=== PATIENT | male | born 1975 | race Caucasian/White ===

== ENCOUNTER 2017-04-24 04:24 | Emergency (ER) | payer OTHER ==
[2017-04-24 04:29] VITALS: BP 143/93; PULSE 96; RESP 18; TEMP 98.8; O2SAT 92
[2017-04-24] MEDS ORDERED: IBUPROFEN 200 MG TAB PO ONE (04:49)
[2017-04-24] MEDS ORDERED: PENICILLIN VK 250MG PREPACK#6 BTL TAKEHOME ONE (04:49)
[2017-04-24] MEDS ORDERED: PENICILLIN VK 500 MG TAB PO ONE (04:49)
--- NOTE | 2017-04-24 04:49 | EDPHY ---
H & P Stated Complaint: left side jaw pain and swelling HPI/ROS: HPI CHIEF COMPLAINT: Left lower jaw line pain dental pain. Jaw line swelling. HISTORY OF PRESENT ILLNESS: The patient very pleasant 42-year-old male, otherwise healthy significant past medical history for asthma, has very poor dentition. Smokes tobacco daily. Extensive dental caries and dental decay. For the past 12 hours developed some left lower jaw line pain and swelling. No fever. No trouble swallowing. Denies fever. This started 12 hours ago. He came to the emergency room for pain control and antibiotics. He states he has a dentist that follows him. On the of this month is due to have dental extractions of these teeth. Past Medical History: No significant medical history except for poor dentition. Extensive dental caries. Dental decay. Asthma Past Surgical History: No recent surgery Social History: Smokes tobacco daily. Denies illicit drugs or alcohol. Family History: Noncontributory ROS REVIEW OF SYSTEMS: A comprehensive 10 point review of systems is otherwise negative aside from elements mentioned in the history of present illness. Exam Constitutional appears well nontoxic, triage nursing summary reviewed, vital signs reviewed, awake/alert. Eyes normal conjunctivae and sclera, EOMI, PERRLA. HENT oropharynx: Very poor dentition. Extensive dental decay. Extensive dental caries. No signs of Nash's. No gumline abscess visible. On the left lower jaw line there are multiple teeth missing and dental decay. Tender palpation along this jaw line. No significant swelling externally. No lymphadenopathy. normal inspection, atraumatic, moist mucus membranes, no epistaxis, neck supple/ no meningismus, no raccoon eyes. Respiratory clear to auscultation bilaterally, normal breath sounds, no respiratory distress, no wheezing. Cardiovascular rate normal, regular rhythm, no murmur, no edema, distal pulses normal. Gastrointestinal soft, non-tender, no rebound, no guarding, normal bowel sounds, no distension, no pulsatile mass. Genitourinary no CVA tenderness. Musculoskeletal no midline vertebral tenderness, full range of motion, no calf swelling, no tenderness of extremities, no meningismus, good pulses, neurovascularly intact. Skin pink, warm, & dry, no rash, skin atraumatic. Neurologic awake, alert and oriented x 3, AAOx3, moves all 4 extremities equally, motor intact, sensory intact, CN II-XII intact, normal cerebellar, normal vision, normal speech. Psychiatric normal mood/affect. Heme/Lymph/Immune no lymphadenopathy. Differential Diagnosis: Includes but is not limited to in a particular order dental decay, dental caries, apical abscess, pulpitis, jaw line infection Medical Decision Making: Plan for this patient 1st dose Pen-VK here. Ibuprofen 800. Prescription for [place], pen VK and ibuprofen. Close follow-up with his dentist. Return precautions given. He has been told return emergency room if develops worsening swelling, pain, fever. Questions or concerns he understands. Re-evaluation: Source: Patient - Personal History Current Tetanus/Diphtheria Vaccine: Yes Current Tetanus Diphtheria and Acellular Pertussis (TDAP): Yes - Medical/Surgical History Hx Asthma: Yes Hx Chronic Respiratory Disease: No Hx Diabetes: No Hx Cardiac Disease: No Hx Renal Disease: No Hx Cirrhosis: No Hx Alcoholism: No Hx HIV/AIDS: No Hx Splenectomy or Spleen Trauma: No Other PMH: asthma, - Social History Smoking Status: Current every day smoker Constitutional: Initial Vital Signs Temperature (C) 37.1 C 04/24/17 04:26 Heart Rate 96 04/24/17 04:26 Respiratory Rate 18 04/24/17 04:26 Blood Pressure 143/93 H 04/24/17 04:26 O2 Sat (%) 92 04/24/17 04:26 O2 Delivery Mode Room Air Allergies/Adverse Reactions: No Known Allergies Allergy (Unverified 04/24/17 04:29) Home Medications: Medication Instructions Recorded Hydrocodone/APAP 5/325 [[place] 1 - 2 tab PO Q4H PRN #20 tab 04/24/17 5/325] Ibuprofen [Motrin (*)] 800 mg PO Q6-8PRN #10 tab 04/24/17 Penicillin V Potassium [Penicillin 500 mg PO BID #14 tab 04/24/17 VK] Ventolin Hfa Inhaler 04/24/17 Departure - Departure Disposition: Home, Routine, Self-Care Clinical Impression: Pain, dental Condition: Good Instructions: Dental Caries (ED), Dental Abscess (ED), Toothache (ED) Additional Instructions: 1. Return emergency room if develops worsening symptoms. 2. Please follow up with her dentist. 3. Return if you develop fever worsening swelling worsening pain. Referrals: NONE *PRIMARY CARE P,. [Primary Care Provider] - As per Instructions Prescriptions: Hydrocodone/APAP 5/325 [[place] 5/325] 1 - 2 tab PO Q4H PRN #20 tab PRN Reason: Pain, Moderate Ibuprofen [Motrin (*)] 800 mg PO Q6-8PRN #10 tab Penicillin V Potassium [Penicillin VK] 500 mg PO BID #14 tab
== END 2017-04-24 05:08 | disposition home or self-care (01) ==
DX: K08.89 Other specified disorders of teeth and supporting structures (principal); J45.909 Unspecified asthma, uncomplicated; F17.200 Nicotine dependence, unspecified, uncomplicated

== ENCOUNTER 2017-04-29 09:30 | Emergency (ER) | payer OTHER ==
--- NOTE | 2017-04-29 10:18 | EDPHY ---
H & P Stated Complaint: Waiting to have dental extractions on 05/03;needs more meds/ diff med Time Seen by Provider: 04/29/17 10:17 HPI/ROS: HPI: This is a 42-year-old male presents with Chief Complaint: Dental infection Location: Left lower jaw Quality: Dental infection Duration: Couple days Signs and Symptoms:+ jaw swelling, + increasing pain, no difficulty swallowing, + radiation to ear causing pain, no fever, no chills, no difficulty speaking, no neck stiffness Timing: Gradually worsening Severity: Severe Context: Patient presents with poor dentition that he had followed up with the outpatient dental clinic 1-2 weeks ago; had x-rays that noted infection and need for multiple tooth extractions of number 15 and number 17. Patient has to wait until May 03 until he gets paid; to pay the 500 dollar fee. He was seen in this ER on 04/24/2017; given penicillin and [place]. He is on day 5 of antibiotic but notes he has run out of the [place] in the last 2 days. He reports that there is worsening of the dental pain as well as the left lower jaw swelling and is now radiating into his year. + tobacco user Modifying Factors: See above Comment: ROS: see HPI Constitutional: No fever, no chills, no weight loss Eyes: No blurred vision Respiratory: No shortness of breath, no cough Cardiovascular: No chest pain Gastrointestinal: No nausea, no vomiting, no diarrhea Genitourinary: No dysuria Extremities: No myalgias Neurologic: No weakness, no numbness Skin: No rashes Hematologic: No bruising, no bleeding MEDICAL/SURGICAL/SOCIAL HISTORY: Medical history: Asthma Surgical history: Denies Social history: with children. Employed. CONSTITUTIONAL: Very pleasant and polite adult white male, awake and alert, no obvious distress HEENT: Atraumatic and normocephalic, PERRL, EOMI. Tympanic membranes clear. Oropharynx clear, no exudate and moist pink mucosa. Airway patent. No lymphadenopathy. Very poor dentition. Extensive dental decay. Extensive dental caries. No signs of Nash's. No gumline abscess visible. On the left lower jaw line there are multiple teeth missing and dental decay. Tender palpation along this jaw line especially over to #15 and #17. No significant swelling externally. No lymphadenopathy. NECK: supple, no meningismus, no lymphadenopathy Cardiovascular: Normal S1/S2, regular rate, regular rhythm, without murmur rub or gallop. PULMONARY/CHEST: Symmetrical and nontender. Clear to auscultation bilaterally. Good air movement. No accessory muscle usage. ABDOMEN: Soft, nondistended, nontender, no rebound, no guarding, no peritoneal signs, no masses or organomegaly. No CVAT. EXTREMITIES: 2/2 pulses, no deformities, no clubbing, no cyanosis or edema. NEUROLOGICAL: no focal neuro deficits. GCS 15. SKIN: Warm and dry, no erythema. no rash. Good capillary refill. Source: Patient Exam Limitations: No limitations - Personal History Current Tetanus Diphtheria and Acellular Pertussis (TDAP): Yes - Medical/Surgical History Hx Asthma: Yes Hx Chronic Respiratory Disease: No Hx Diabetes: No Hx Cardiac Disease: No Hx Renal Disease: No Hx Cirrhosis: No Hx Alcoholism: No Hx HIV/AIDS: No Hx Splenectomy or Spleen Trauma: No Other PMH: asthma - Social History Smoking Status: Current every day smoker Constitutional: Initial Vital Signs Temperature (C) 37 C 04/29/17 09:45 Heart Rate 99 04/29/17 09:45 Respiratory Rate 16 04/29/17 09:45 Blood Pressure 164/107 H 04/29/17 09:45 O2 Sat (%) 94 04/29/17 09:45 O2 Delivery Mode Room Air Allergies/Adverse Reactions: No Known Allergies Allergy (Verified 04/29/17 09:44) Home Medications: Medication Instructions Recorded Hydrocodone/APAP 5/325 [[place] 1 - 2 tab PO Q4H PRN #20 tab 04/24/17 5/325] Ibuprofen [Motrin (*)] 800 mg PO Q6-8PRN #10 tab 04/24/17 Penicillin V Potassium [Penicillin 500 mg PO BID #14 tab 04/24/17 VK] Ventolin Hfa Inhaler 04/24/17 Clindamycin HCl [Clindamycin] 300 mg PO TID #30 cap 04/29/17 oxyCODONE/APAP 5/325 [Percocet 1 - 2 tab PO Q4H PRN #20 tab 04/29/17 5/325 (*)] Medical Decision Making ED Course/Re-evaluation: Afebrile and no systemic signs. 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 Differential Diagnosis: Differential diagnosis includes atypical bacteria infection, Nash's angina, periapical abscess. - Data Points Laboratory Results: 04/29/17 10:28 POC Hgb 15.3 gm/dL gm/dL (13.7-17.5) POC Hct 45 % % (40-51) POC Sodium 143 mEq/L mEq/L (134-144) POC Potassium 4.3 mEq/L mEq/L (3.3-5.0) POC Chloride 107 mEq/L mEq/L (97-110) POC BUN 12 mg/dL mg/dL (7-23) POC Creatinine 1.0 mg/dL mg/dL (0.7-1.3) POC Glucose 95 mg/dL mg/dL (70-100) Medications Given: Discontinued Medications Clindamycin Phosphate/Dextrose (Cleocin 600 Mg (Premix)) 50 mls @ 100 mls/hr IV EDNOW ONE PRN Reason: Protocol Stop: 04/29/17 10:53 Last Admin: 04/29/17 11:00 Dose: 50 mls Ketorolac Tromethamine (Toradol) 30 mg IVP EDNOW ONE Stop: 04/29/17 10:42 Last Admin: 04/29/17 10:45 Dose: 30 mg Morphine Sulfate (Morphine) 6 mg IVP EDNOW ONE Stop: 04/29/17 10:25 Last Admin: 04/29/17 11:23 Dose: Not Given Point of Care Test Results: 04/29/17 10:28 POC Sodium 143 POC Potassium 4.3 POC Chloride 107 POC BUN 12 POC Creatinine 1.0 POC Glucose 95 Departure - Departure Disposition: Home, Routine, Self-Care Clinical Impression: Periapical abscess without sinus tract, Dental caries Condition: Good Instructions: Dental Abscess (ED) Additional Instructions: Please keep dental appointment on May 03 as previously scheduled. Take all antibiotics as directed. Rinse mouth with salt water after eating meals. Referrals: [facility],. [Clinic] - As per Instructions Prescriptions: Clindamycin HCl [Clindamycin] 300 mg PO TID #30 cap oxyCODONE/APAP 5/325 [Percocet 5/325 (*)] 1 - 2 tab PO Q4H PRN #20 tab PRN Reason: Pain, Severe
[2017-04-29] MEDS ORDERED: CLINDAMYCIN 600 MG/DEXTROSE 50 ML IV ONE (10:24)
[2017-04-29] MEDS ORDERED: KETOROLAC 30 MG/1 ML SDV IVP ONE (10:41)
[2017-04-29] MEDS ORDERED: IOPAMIDOL (ISOVUE-300) 100 ML BTL ONE (10:51)
[2017-04-29] MEDS ORDERED: CLINDAMYCIN 600 MG/DEXTROSE/50 ML BAG IV ONE (10:55)
[2017-04-29 12:07] VITALS: BP 135/85; PULSE 81; RESP 18; TEMP 98.4; O2SAT 96
== END 2017-04-29 12:04 | disposition home or self-care (01) ==
DX: K04.7 Periapical abscess without sinus (principal); K02.9 Dental caries, unspecified; J45.909 Unspecified asthma, uncomplicated; F17.200 Nicotine dependence, unspecified, uncomplicated
CPT/HCPCS: 82947-QW; 96365; J1885; Q9967

== ENCOUNTER 2018-08-20 11:18 | Emergency (ER) | payer OTHER ==
--- NOTE | 2018-08-20 12:11 | EDPHY ---
H & P Time Seen by Provider: 08/20/18 12:18 HPI/ROS: CHIEF COMPLAINT: Left knee pain HISTORY OF PRESENT ILLNESS: 43 year old male complaining of acute left knee pain which occurred 3 days ago when he was at work, slipped on the floor , twisted his left knee and felt immediate pain to the lateral aspect of the knee and felt a "pop". He now feels instability and reproducible pain when he ambulates. No fall from height. No direct trauma or fall. PRIMARY CARE PROVIDER: REVIEW OF SYSTEMS: A ten point review of systems was performed and is negative with the exception of the items mentioned in the HPI PHYSICAL EXAM (Prior to examination, patient consented to physical exam, hands were washed and my usual and customary physical exam procedures followed) 1) GENERAL: Well-developed, well-nourished, alert and oriented. Appears to be in no acute distress. 2) HEAD: Normocephalic 3) HEENT: Pupils equal, round, reactive to light bilaterally. 4) LUNGS: Breathing comfortably. 5) MUSCULOSKELETAL: Exam of the left knee shows is localized soft tissue swelling . Tender to palpation medial aspect. No gross instability. Observed ambulating with an antalgic gait. Compartments are soft throughout the lower extremity. Negative Homans no palpable cord. No calf edema. 6) SKIN: Intact 7) VASCULAR: DP,PT pulses and cap refill present and brisk distally. Normal coloration temperature distally. DIFFERENTIAL DIAGNOSIS: in no particular order including but not limited to fracture, sprain, compartment syndrome, septic arthritis, DVT Procedure: Crutches indications for crutch use discussed with patient. Patient fitted for crutches by ER staff. Observed ambulating with crutches. I think the patient has the capacity to safely use crutches. Usual and customary crutch walking precautions provided Procedure: Splint A knee immobilizer splint was applied by ER control systems technician. After application of the splint I returned and re-examined the patient. The splint was adequately immobilizing the joint and distal to the splint the patient's circulation and sensation were intact. Patient shows no signs of compartment syndrome. Was given orthopedic precautions. MEDICAL DECISION MAKING 12:45 p.m. Serial evaluations performed on patient most recently at this time. I discussed the limitations of x-ray in diagnosis of knee pain and injury. Informed that he might have a small patellar avulsion fracture. At this time I do not think that emergent MRI is currently indicated. However, I have recommended follow-up with Orthopedic surgery and provided this referral information. 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 Informed the patient that outpatient MRI may be indicated. Doubt septic arthritis. Doubt compartment syndrome. Doubt DVT. At this time he specifically asked at this time "So I don't have a blood clot in my leg?" Informed the patient that my pretest suspicion for DVT was low and that an x-ray would not rule in or rule out a DVT. He became visibly upset at this time stating, "That's the whole reason I came here". I then observed ambulating him ambulating out of the ER visibly upset. He did not receive the entirety of his aftercare instructions. Care of patient under supervision of secondary supervising physician Dr Marty Harrison . Smoking Status: Current every day smoker Constitutional: Initial Vital Signs Temperature (C) 36.8 C 08/20/18 11:23 Heart Rate 96 08/20/18 11:23 Respiratory Rate 18 08/20/18 11:23 Blood Pressure 123/83 H 08/20/18 11:23 O2 Sat (%) 95 08/20/18 11:23 O2 Delivery Mode Room Air Allergies/Adverse Reactions: No Known Allergies Allergy (Verified 08/20/18 11:23) Home Medications: Medication Instructions Recorded Hydrocodone/APAP 5/325 [[place] 1 - 2 tab PO Q4H PRN #20 tab 04/24/17 5/325] Ibuprofen [Motrin (*)] 800 mg PO Q6-8PRN #10 tab 04/24/17 Penicillin V Potassium [Penicillin 500 mg PO BID #14 tab 04/24/17 VK] Ventolin Hfa Inhaler 04/24/17 Clindamycin HCl [Clindamycin] 300 mg PO TID #30 cap 04/29/17 oxyCODONE/APAP 5/325 [Percocet 1 - 2 tab PO Q4H PRN #20 tab 04/29/17 5/325 (*)] Cyclobenzaprine [Flexeril 10 MG 10 mg PO TID #10 tab 08/20/18 (RX)] MDM/Departure - MDM Imaging Results: Imaging Impressions Knee X-Ray 08/20/18 11:42 Impression: 1. Faint calcification along the inferomedial margin of the patella that could represent shearing type fracture associated with the cortex. Findings discussed with Roberto BARR at 12:58 hour, 08/20/2018. Imaging reviewed myself - Depart Disposition: Home, Routine, Self-Care Clinical Impression: Left medial knee pain Condition: Good Instructions: Knee Pain (ED) Additional Instructions: Return to the ER immediately if you experience discoloration, have worsening pain, numbness, tingling, or any other symptoms that concern you. If you received x-rays in the emergency department today, be advised, that ligamentous , tendon, muscular, and other non-bony injury cannot be fully ruled out. Try to keep your affected extremity elevated above the level of your chest, and keep cold packs on the affected area, for the next 48 hours. Adult Pain & Fever Control: We recommend Acetaminophen (Tylenol) and Ibuprofen (Motrin,Advil) for pain and fever control. When fever is high or pain severe, both drugs can be used at the same time, but at different intervals. Please note the time differences. Your dose is: Acetaminophen 650mg every 4 to 6 hours Ibuprofen 600mg every 6 hours with food OR Note: do not take Acetaminophen with Hydrocodone (Vicodin, Lortab) or Oycodone (Percocet). These medications also contain Acetaminophen. No more than 3000mg of Acetaminophen should be taken in 24 hours (for an adult). Stand Alone Forms: Work Comp Follow Up, Work Excuse Prescriptions: Cyclobenzaprine [Flexeril 10 MG (RX)] 10 mg PO TID #10 tab Referrals: Kyler Chu MD [Medical Doctor] - As per Instructions
[2018-08-20 12:54] VITALS: BP 119/75
== END 2018-08-20 12:54 | disposition home or self-care (01) ==
DX: S89.92XA Unspecified injury of left lower leg, initial encounter (principal); X50.1XXA Overexertion from prolonged static or awkward postures, initial encounter; Y99.0 Civilian activity done for income or pay; Y92.9 Unspecified place or not applicable; Y93.9 Activity, unspecified
CPT/HCPCS: L1830